=== PATIENT | male | born 1975 | race Caucasian/White ===

== ENCOUNTER 2020-05-20 07:47 | Emergency (ER) | payer OTHER ==
[~2020-05-20 07:47] MED LIST: CIPRO500 MG PO; CLEOCIN HCL300 MG PO; FLAGYL500 MG PO; FLEXERIL 10 MG10 MG PO; IBUPROFEN600 MG PO; TORADOL 10 MG T10 MG PO
[2020-05-20] MEDS ORDERED: CYCLOBENZAPRINE10 MG PO (11:35)
== END 2020-05-20 11:51 | disposition home or self-care (01) ==
LOC: ER1 07:47
DX: S39.012A Strain of muscle, fascia and tendon of lower back, initial encounter (principal); E11.9 Type 2 diabetes mellitus without complications; J44.9 Chronic obstructive pulmonary disease, unspecified; F17.210 Nicotine dependence, cigarettes, uncomplicated; I10 Essential (primary) hypertension; Z91.81 History of falling; Z79.4 Long term (current) use of insulin; W00.0XXA Fall on same level due to ice and snow, initial encounter; X50.9XXA Other and unspecified overexertion or strenuous movements or postures, initial encounter
CPT/HCPCS: 72100; 96372; 99283; J1885

== ENCOUNTER 2020-06-24 08:51 | Emergency (ER) | payer SELFPAY ==
[~2020-06-24 08:51] MED LIST changes: +CYCLOBENZAPRINE10 MG PO
[2020-06-24] MEDS ORDERED: MOBIC15 MG PO (09:39)
== END 2020-06-24 10:30 | disposition home or self-care (01) ==
LOC: ER1 08:51
DX: T39.091A Poisoning by salicylates, accidental (unintentional), initial encounter (principal); F15.10 Other stimulant abuse, uncomplicated; F12.10 Cannabis abuse, uncomplicated; F17.210 Nicotine dependence, cigarettes, uncomplicated
CPT/HCPCS: 72100; 96372; 99283